=== PATIENT | female | born 1995 | race American Indian/Alaskan Native ===

== ENCOUNTER 2016-08-25 18:19 | Outpatient (CLI) | payer MEDICAID ==
[2016-08-25] MEDS ORDERED: LACTATED RINGERS 500 ML IV ONE ×2 (18:24→19:56)
[2016-08-25] MEDS ORDERED: LACTATED RINGERS 1,000 ML ONE ×2 (18:47→19:30)
[2016-08-25 19:30] LABS: Bilirubin,Urine NEG (Negative); Blood,Urine NEG (Negative); Ketones,Urine NEG (Negative); Leukocyte Esterase,Urine NEG (Negative); Mucus,Urine FEW /HPF; Nitrite,Urine NEG (Negative); Protein,Urine <15 mg/dL mg/dL (Negative); Urobilinogen,Urine < 2.0 mg/dL (<2.0)
[2016-08-25] MEDS ORDERED: BRETHINE ONE (19:54)
[2016-08-25] MEDS: BRETHINE SUB-Q SCH ×2 (20:00→20:28)
[2016-08-25 20:01] VITALS: BP 112/66
== END 2016-08-25 21:38 | disposition home or self-care (01) ==
LOC: TRG 18:19
PROVIDERS: ATTEND Obstetrics & Gynecology
DX: O47.03 False labor before 37 completed weeks of gestation, third trimester (principal); Z3A.30 30 weeks gestation of pregnancy
CPT/HCPCS: 36415; 59025; 81001; 82731; 96360; 96361; J3105; J7120

== ENCOUNTER 2016-10-16 13:40 | Inpatient (IN) | payer MEDICAID ==
[2016-10-16] MEDS ORDERED: PEPCID IV ONE ×2 (14:46→18:00)
[2016-10-16] MEDS ORDERED: REGLAN IV ONE ×2 (14:46→18:00)
[2016-10-16] MEDS ORDERED: BICITRA PO ONE ×2 (14:46→18:00)
--- NOTE | 2016-10-16 14:51 | History and Physical Report ---
History of Present Illness Date of examination: 10/16/16 (pt presents in labor Known Breech presentation) Chief complaint: contractions X several hours History of present illness: EDC Confirmation: 10/28/2016 Gestational Age: 10 5/7 weeks Past History : 2 Term Births: 1 Living Children: 1 Para: 1 Mult. Births: 0 Prev : 0 Aborta: 0 Elect. Ab: 0 Spont. Ab: 0 Ectopics: 0 # 1 Delivery date: 2015 Weeks Gestation: 39 labor: no Delivery type: Anesthesia type: none Delivery location: [place] Sex: Male weight: 6#11 Past Medical History: Negative Past Medical History Past Surgical History: negative Past Medical History Anesthesia Complications: negative Anemia: negative Autoimmune Disorder: negative Bleeding Disorder: negative Blood Transfusions: negative Breast Disease: negative Diabetes: negative Heart Disease: negative Hypertension: negative Hepatitis/Liver Disease: negative Kidney Disease/UTI: negative Neurologic/Epilepsy/Migraines: negative Phlebitis/Varicosities: negative Psychiatric: negative Pulmonary Disease/Asthma: negative Thyroid Disease: negative Hospitalizations: negative Surgery (Non-dog trainer): negative Abnormal PAP: negative REJI Exposure: negative Infertility: negative Uterine Anomaly: negative Uterine Surgery (not C/S): negative Other Gynecologic Problems: negative Social Hx: , no ETOH/Drugs/smoking Infection History Hx of STD: none HIV Risk Eval: low risk Hepatitis B Risk Eval: low risk Personal hx. of genital herpes: no Partner hx. of genital herpes: no Rash, Viral, or Febrile illness since last LMP? no Varicella/Chicken Pox Status: Immunized TB Risk: no Genetic History Congenital Heart Defect: Mom: no Dad: no Anne-Marie Disease: Mom: no Dad: no Thalassemia Mom: no Dad: no Neural Tube Defect Mom: no Dad: no Down's Syndrome Mom: no Dad: no Everette-Sachs Mom: no Dad: no Sickle Cell Disease/Trait Mom: no Dad: no Hemophilia Mom: no Dad: no Muscular Dystrophy Mom: no Dad: no Cystic Fibrosis Mom: no Dad: no [place] Chorea Mom: no Dad: no Mental Retardation Mom: no Dad: no Fragile X Mom: no Dad: no Other Genetic/Chromosomal Disorder Mom: no Dad: no Child w/other defect Mom: no Dad: no Enviromental Exposures Xray Exposure: no Medication, drug, or alcohol use since LMP: no Chemical/Other Exposure: no Exposure to Cat Liter: no Hx of Parvovirus (Fifth Disease): no Occupational Exposure to Children: none Active Medications (reviewed today): None Laboratory Results Routine Urinalysis Leukocytes: negative Nitrite: negative Urobilinogen: negative Protein: negative Blood: negative Ketone: negative Bilirubin: negative Glucose: negative Urine HCG: positive Review of Systems General Denies fever, chills, sweats, anorexia, fatigue, weakness, malaise, weight loss and sleep disorder. Denies nausea, vomiting, headache, swelling of legs, abdominal pain, vaginal discharge, vaginal bleeding and contractions. Denies vaginal discharge, incontinence, dysuria, hematuria, urinary frequency, amenorrhea, menorrhagia, abnormal vaginal bleeding, pelvic pain, genital sores, decreased libido, painful periods, painful sex, urinary urgency, hot flashes, vaginal dryness, vaginal itching and vaginal odor. CV Denies chest pains, palpitations, syncope, dyspnea on exertion, orthopnea, PND and peripheral edema. Resp Denies cough, dyspnea at rest, excessive sputum, hemoptysis, wheezing and pleurisy. GI Denies nausea, vomiting, diarrhea, constipation, change in bowel habits, abdominal pain, melena, hematochezia, jaundice, gas/bloating, indigestion/ heartburn, dysphagia and odynophagia. Endo Denies cold intolerance, heat intolerance, polydipsia, polyphagia, polyuria and unusual weight change. Breast Denies left breast lump, right breast lump, nipple discharge, bloody discharge from nipple, breast pain, abnormal mammogram and breast enlargement. MS Denies back pain, joint pain, joint swelling, muscle cramps, muscle weakness, stiffness, arthritis, sciatica, restless legs, leg pain at night and leg pain with exertion. Derm Denies rash, itching, dryness and suspicious lesions. Neuro Denies paralysis, paresthesias, headache, seizures, tremors, vertigo, transient blindness, frequent falls, frequent headaches and difficulty walking. Psych Denies depression, anxiety, irritability and mood swings. Eyes Denies blurring, diplopia, irritation, discharge, vision loss, eye pain and photophobia. ENT Denies earache, ear discharge, tinnitus, decreased hearing, nasal congestion, nosebleeds, sore throat and hoarseness. Allergy Denies urticaria, allergic rash, hay fever and recurrent infections. Heme Denies abnormal bruising, bleeding and enlarged lymph nodes. 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 Fundal Ht: sono FHT: + Past History - Obstetrical History Expected Date of Delivery: 10/28/16 Actual Gestation: 38 Week(s) 2 Day(s) : 2 Para: 1 Hx # Term Pregnancies: 1 Number of Living Children: 1 Medications and Allergies Allergies Allergy/AdvReac Type Severity Reaction Status Date / Time Fish Containing Products Allergy Anaphylaxis Verified 04/16/15 18:12 Home Medications Medication Instructions Recorded Confirmed Last Taken Type Nitrofurantoin [place]/M-Cryst 100 mg PO Q12HR #14 capsule 04/16/15 Unknown Rx [Macrobid CAP] Phenazopyridine [Pyridium] 200 mg PO TID #6 tab 04/16/15 Unknown Rx - Vital Signs Vital signs: Vital Signs Pulse BP 89 112/79 10/16/16 13:57 10/16/16 13:57 Temp Pulse Resp BP Pulse Ox 84 98/59 10/16/16 14:27 10/16/16 14:27 - Physical Exam Breasts: Positive: deferred Cardiovascular: Regular rate, Normal S1, Normal S2 Lungs: Positive: Clear to auscultation, Normal air movement Abdomen: Positive: normal appearance, soft, normal bowel sounds. Negative: distention, tenderness Genitourinary (Female): Positive: normal external genitalia, normal perenium Vulva: both: normal Vagina: Positive: normal moisture. Negative: discharge Cervix: Negative: lesion, discharge Uterus: Positive: normal size, normal contour Adnexa: both: normal Anus/Rectum: Positive: normal perianal skin, heme negative. Negative: rectal mass, hemorrhoids Extremities: Positive: normal Deep Tendon Reflex Grade: Normal +2 - Obstetrical FHR: category 1 Uterine Contraction Monitor Mode: External Cervical Dilatation: 3 (per material damage appraiser) Cervical Effacement Percentage: 50 station: -3 Uterine Contraction Frequency (min): q2-4 Uterine Contraction Pattern: Regular Uterine Tone Measurement Phase: Resting Uterine Contraction Intensity: Moderate Results All other labs normal. Laboratory Data-Patient Name: MOISE KINNEY Test Date Result Blood Type 05/08/2016 O Rh 05/08/2016 Negative Antibody Screen negative Rubella 05/08/2016 immune Serology (RPR) 09/26/2016 NR HBsAg 05/08/2016 Negative Hemoglobin 07/11/2016 9.9 Hematocrit 07/11/2016 30.7 Platelets 05/08/2016 201 X10E3/UL Chlamydia DNA 07/11/2016 Negative GC DNA/Culture 07/11/2016 Urine Culture 05/08/2016 Final report Group B Strep cult negative PAP HIV 09/26/2016 negative AFP/Quad Screen Glucola Test 3hr GTT (Fasting) 07/18/2016 76 1 hr 07/18/2016 105 2 hr 07/18/2016 90 3 hr 07/18/2016 93 OPTIONAL LABS-Patient Name:MOISE KINNEY Test Date Result Varicella Ab Sickle Cell 05/08/2016 Negative PPD Fibronectin Cystic Fibrosis Parvovirus TSH Free T4 Hepatitis C ALT AST Uric Acid Creatinine 24 hr Urine Protein LIVIA Assessment and Plan - Patient Problems (1) Breech presentation Current Visit: Yes Status: Acute Qualifiers: Fetus number: single or unspecified fetus Qualified Code(s): O32.1XX0 - Maternal care for breech presentation, not applicable or unspecified Plan to address problem: 21yo @ 38+weeks in active labor Breech presentation. aware. Will move forward with c/s prep. Consents. All orders in EMR
[2016-10-16] MEDS ORDERED: ANCEF/STERILE WATER 2 GM/20 ML 2 GM/20 ML SYRINGE IV NR (15:00)
[2016-10-16] MEDS: LACTATED RINGERS 1,000 ML IV SCH ×2 (15:00→18:58)
[2016-10-16] MEDS ORDERED: PITOCin/NS 20 UNIT/1000ML DRIP 20 UNITS/1,000 ML BAG IV SCH ×2 (15:00→22:38)
[2016-10-16 15:38] LABS: Basophils % (Auto) 0.3 % (0.0-1.8); Eosinophils % (Auto) 0.7 % (0.0-4.3); Hematocrit 27.8 % (30.3-42.9); Hemoglobin 9.1 gm/dl (10.1-14.3); Mean Corpuscular HGB Conc 33 % (30-34); Mean Corpuscular Volume 77 fl (79-97); Platelet Count 161 K/mm3 (140-440); Red Blood Count 3.61 M/mm3 (3.65-5.03); Red Cell Distribution Width 14.6 % (13.2-15.2); White Blood Count 9.3 K/mm3 (4.5-11.0)
[2016-10-16 15:53] LABS: Mean Corpuscular Hemoglobin 25 pg (28-32)
[2016-10-16] MEDS ORDERED: MORPHINE ONE (19:37)
[2016-10-16] MEDS ORDERED: ZOFRAN ONE (19:52)
[2016-10-16] MEDS ORDERED: NACL 0.9% IR ONE (20:00)
[2016-10-16] MEDS ORDERED: WATER FOR IRRIG STERILE IR ONE (20:00)
[2016-10-16] MEDS ORDERED: VERSED ONE ×2 (20:10→20:19)
[2016-10-16] MEDS ORDERED: SUBLIMAZE ONE (20:14)
--- NOTE | 2016-10-16 21:00 | Operative Report ---
Operative Report Operative Report: Date of procedure: 10/16/2016 Pre-operative diagnosis: Breech Presentation Post-operative diagnosis: Same Procedure name(s): Primary low transverse section Surgeon: Vikash Rome MD Electric Wirer: Anesthesia: Spinal EBL: 800 mL Complications: None Findings: Normal uterus tubes and ovaries, male breech presentation, weight 6 lbs. 13 oz., Apgars 8 at 1 minute 9 at 5 minutes. Nuchal cord 1 Specimen(s): None Procedure: The patient was brought to the operating room. A spinal was placed without any complications. She was then placed in left lateral tilt. Prepped and draped in the usual sterile manner. After testing for adequate anesthesia level, a Pfannenstiel incision was made. This incision was taken down to the fascia. The fascia was then nicked in the midline. This incision was extended out laterally with Warren scissors. The fascia was then sharply and bluntly from the underlying rectus muscles. The rectus muscles were bluntly and sharply . The peritoneum was then entered with the oil well cable tool operator's fingers. This incision was spread vertically with care not to damage the bladder below. The Db retractor was placed without difficulty. The bladder flap was then formed sharply and bluntly with Metzenbaum scissors. A transverse incision was made in lower uterine segment. This incision was extended laterally with the operators fingers. The amniotic sac was then entered bluntly with the oil well cable tool operator's fingers. The was delivered by delivered in the breech first flexing and extending the lower extremities followed by raising the breech then sweeping flexing and extending the upper extremities and after coming head was then delivered safely after nuchal cord was easily reduced. The infant was bulb suctioned on the mother's abdomen. Cord was double clamped and cut. The infant was then passed to the nursery personnel who were in attendance. The above scores were given by the nursery personnel. The placenta was then bluntly removed. The uterus was then externalized and wiped clean the remaining products. The uterine incision was closed in layers. The first incision was closed in a locking manner using 0 Vicryl. This was followed by imbricating stitch also with 0 Vicryl. This closure was hemostatic. The bladder flap was copiously irrigated and found to be hemostatic. The pelvis was copiously irrigated and found to be hemostatic. The uterus was then placed back to the patient's abdomen. The retractors were removed. The rectus muscles were inspected and found to be hemostatic. The fascia was then closed in a running manner using 0 Vicryl. This incision was hemostatic irrigation Bovie. The skin was reapproximated with 4-0 Vicryl subcuticularly. The patient tolerated procedure well. Her urine was clear. The was admitted to the well baby nursery. The patient was accompanied to recovery room in good condition. Instrument count correct 3.
[2016-10-16] MEDS ORDERED: MORPHINE IV PRN ×2 (21:15)
[2016-10-16] MEDS ORDERED: TORADOL IV PRN (21:15)
[2016-10-16] MEDS ORDERED: ZOFRAN IV PRN (21:16)
--- NOTE | 2016-10-16 21:16 | Post Anesthesia Evaluation ---
- Post Anesthesia Evaluation Patient Participated: Yes Airway Patent: Yes Stable Respiratory Function: Yes Nausea/Vomiting: No Temp > 96.8F: Yes Pain Manageable: Yes Adequeate Hydration: Yes Anesthesia Complications: No Block Receding Appropriately: Yes Patient on Ventilator: No
--- NOTE | 2016-10-16 21:16 | Anesthesia Consultation ---
Anesthesia Consult and Med Hx Date of service: 10/16/16 - Airway Anesthetic Teeth Evaluation: Good ROM Head & Neck: Adequate Mental/Hyoid Distance: Adequate Mallampati Class: Class II Intubation Access Assessment: Probably Good - Pulmonary Exam CTA: Yes - Cardiac Exam Cardiac Exam: RRR - Pre-Operative Health Status ASA Pre-Surgery Classification: ASA2 Proposed Anesthetic Plan: Spinal - Pulmonary Hx Asthma: No COPD: No Hx Pneumonia: No - Cardiovascular System Hx Hypertension: No - Central Nervous System Hx Seizures: No Hx Psychiatric Problems: No - Endocrine Hx Renal Disease: No Hx Hypothyroidism: No Hx Hyperthyroidism: No - Hematic Hx Anemia: No Hx Sickle Cell Disease: No - Other Systems Hx Alcohol Use: No - Additional Comments Anesthesia Medical History Comments: +iup, breech
--- NOTE | 2016-10-16 21:16 | Anesthesia Day of Surgery ---
Anesthesia Day of Surgery - Day of Surgery Patient Examined: Yes Patient H&P Reviewed: Yes Patient is NPO: Yes
[2016-10-16] MEDS ORDERED: BENADRYL IV PRN (21:17)
[2016-10-16] MEDS ORDERED: LANSINOH TP PRN (22:38)
[2016-10-16] MEDS ORDERED: SODIUM CHLORIDE FLUSH SYRINGE 10 ML IV NR (22:38)
[2016-10-16] MEDS ORDERED: MILK OF MAGNESIA PO PRN (22:38)
[2016-10-16] MEDS ORDERED: NARCAN 0.4 MG/1 ML IV PRN (22:38)
[2016-10-16] MEDS ORDERED: TUCKS PAD TP PRN (22:38)
[2016-10-16] MEDS ORDERED: MYLICON PO PRN (22:38)
[2016-10-16] MEDS ORDERED: D5LR 1,000 ML IV SCH (22:38)
[2016-10-16] MEDS: ANCEF/NS 1 GM/50 ML 1 GM/50 ML BAG IV SCH (23:05)
--- NOTE | 2016-10-17 07:57 | Ultrasound Report ---
ULTRASOUND OB LIMITED History: well being, evaluate presentation Technique: Transabdominal ultrasound with Doppler interrogation. Gestation: Single Position: Breech Heart Rate: 157 BPM
--- NOTE | 2016-10-17 08:03 | Progress Note ---
Assessment and Plan patient doing well <12h post op, pain well controlled, lochia scant, dressing D &I, Huddleston patent with good output, VSSAF. Patient reports infant without any difficulty. postop H&H ordered for 9am. Advance diet and activity as tolerated. reenforced use of IS frequently throughout the day. Continue current pathway. - Patient Problems (1) delivery delivered Current Visit: Yes Status: Acute Subjective - Subjective Date of service: 10/17/16 Principal diagnosis: postop day #1 s/p primary c/s for breech Patient reports: pain well controlled, no dizzy ambulation, no flatus, no nauseated : doing well, nursing well Objective - Vital Signs Latest vital signs: Vital Signs Temp Pulse Pulse Resp BP BP Pulse Ox 10/17/16 05:25 98.5 F 69 18 97/57 10/17/16 01:13 98.5 F 76 18 109/55 10/16/16 22:35 98.1 F 60 16 112/68 10/16/16 22:00 67 13 109/66 100 10/16/16 21:45 75 12 105/69 100 10/16/16 21:30 77 10 L 113/50 99 10/16/16 21:15 55 L 14 106/65 100 10/16/16 21:00 67 14 120/72 100 10/16/16 20:56 69 12 121/70 100 10/16/16 20:52 97.6 F 84 18 117/73 100 10/16/16 16:28 76 112/63 10/16/16 15:58 84 110/64 10/16/16 14:57 92 H 109/79 10/16/16 14:27 84 98/59 10/16/16 13:57 89 112/79 Intake and Output 10/16/16 10/17/16 10/17/16 22:59 06:59 14:59 Intake Total 1825 1120 Output Total 400 1200 Balance 1425 -80 Intake: IV 1825 1000 ANCEF/NS 1 GM/50 ML 1 gm 50 In 50 ml @ 100 mls/hr IV Q8H ZORAN Rx#:[id number] D5lr 1,000 ml @ 125 mls/ 625 hr IV DIRECT ZORAN Rx#: [id number] Lactated Ringers 1,000 ml 1000 @ 2250 mls/hr IV PREOP ZORAN Rx#:[id number] PITOCin/NS 20 UNIT/1000ML 125 325 DRIP 20 units In 1,000 ml @ 250 mls/hr IV DIRECT ZORAN Rx#:[id number] Intake, Free Water 120 Output: Urine 400 1200 Indwelling Catheter 1200 Uretheral (Huddleston) 150 Other: Total, Output Amount 500 # Voids Void 1 Weight 61.689 kg Estimated Blood Loss 800 - Exam Breasts: Present: normal, Cardiovascular: Present: Regular rate Lungs: Present: Clear to auscultation, Normal air movement Abdomen: Present: normal appearance, soft Vulva: both: normal Uterus: Present: normal, firm, fundal height at umbilicus Extremities: Present: normal Deep Tendon Reflex Grade: Normal +2 Incision: Present: normal, dry, dressed - Labs Labs: Abnormal lab results 10/16/16 Range/Units 15:17 RBC 3.61 L (3.65-5.03) M/mm3 Hgb 9.1 L (10.1-14.3) gm/dl Hct 27.8 L (30.3-42.9) % MCV 77 L (79-97) fl MCH 25 L (28-32) pg Seg Neutrophils % 71.8 H (40.0-70.0) %
[2016-10-17] MEDS: ANCEF/NS 1 GM/50 ML 1 GM/50 ML BAG IV SCH (09:39)
[2016-10-17] MEDS: PRENATAL VITAMIN PO SCH (09:40)
[2016-10-17] MEDS ORDERED: FEOSOL PO SCH (10:00)
[2016-10-17 10:09] LABS: Hematocrit 24.7 % (30.3-42.9); Hemoglobin 8.1 gm/dl (10.1-14.3)
--- NOTE | 2016-10-17 11:02 | Progress Note ---
Subjective Date of service: 10/17/16 Principal diagnosis: postop day #1 s/p primary c/s for breech Interval history: 1st POD after Patient is in the bed, comfortable. Pain is well controlled with pain meds. Slight pruritus, no meds. No residual neurological deficit. No anesthesia complications Objective - Constitutional Vitals: Vital Signs - 12hr 10/17/16 10/17/16 01:13 05:25 Temperature 98.5 F 98.5 F Pulse Rate [ 76 69 Right From Monitor] Respiratory 18 18 Rate Blood Pressure 109/55 97/57 [Right Arm] - Labs CBC & Chem 7: 10/17/16 09:51 Labs: Abnormal lab results 10/16/16 10/17/16 Range/Units 15:17 09:51 RBC 3.61 L (3.65-5.03) M/mm3 Hgb 9.1 L 8.1 L (10.1-14.3) gm/dl Hct 27.8 L 24.7 L (30.3-42.9) % MCV 77 L (79-97) fl MCH 25 L (28-32) pg Seg Neutrophils % 71.8 H (40.0-70.0) %
[2016-10-17] MEDS: NORCO 5/325 PO PRN ×3 (13:13→22:36)
[2016-10-17] MEDS: MOTRIN PO PRN ×2 (13:14→18:33)
[2016-10-17] MEDS: COLACE PO SCH ×2 (15:08→22:29)
[2016-10-17] MEDS: FEOSOL PO SCH ×2 (15:08→22:29)
[2016-10-18] MEDS: NORCO 5/325 PO PRN ×2 (04:24→08:54)
--- NOTE | 2016-10-18 06:48 | Discharge Summary ---
Providers - Providers Date of Admission: 10/16/16 15:47 Date of discharge: 10/18/16 (pt requests d/c today; also req Depo for ) Attending physician: RODNEY KUMAR 10/16/16 22:38 Consult to Multiskill Operator [CONS] Routine Reason For Exam: Primary care physician: JERROD LIANG Hospitalization Reason for admission: active labor Delivery: (breech) Procedure: primary low transverse Episiotomy: none Laceration: none Incision: normal, dry, intact Other procedures: none complications: none Discharge diagnosis: IUP at term delivered [place] baby: male Hospital course: uncomplicated primary section BREECH Pt w/o complaint VSS FF below umb Lochia scant Incision D&I H&H 02/01 chronic anemia Pt is asymptomatic. Doing well s/p section P: d/c today with instructions RTO 1 week for postop visit and son's circ. Condition at discharge: Good Disposition: DISCHARGED TO HOME OR SELFCARE - Discharge Diagnoses (1) Breech presentation Status: Acute Qualifiers: Fetus number: single or unspecified fetus Qualified Code(s): O32.1XX0 - Maternal care for breech presentation, not applicable or unspecified (2) delivery delivered Status: Acute Comment: rto 1 week postop care Plan - Discharge Medications Prescriptions: Ferrous Sulfate [Feosol 325 MG tab] 325 mg PO BID #60 tablet Ibuprofen [Motrin 800 MG tab] 800 mg PO Q6H PRN #30 tablet PRN Reason: Pain oxyCODONE /ACETAMINOPHEN [Percocet 5/325 mg] 1 - 2 tab PO Q4H PRN #30 tablet PRN Reason: Pain, Moderate - Provider Discharge Summary Activity: routine, no sex for 6 weeks, no heavy lifting 4 weeks, no strenuous exercise Diet: routine Instructions: routine Additional instructions: [] Smoking cessation referral if applicable(refer to patient education folder for contact #) [] Refer to [facility] Booklet Call your doctor immediately for: * Fever > 100.5 * Heavy vaginal bleeding ( >1 pad per hour) * Severe persistent headache * Shortness of breath * Reddened, hot, painful area to leg or breast * Drainage or odor from incision. * Keep incision clean and dry at all times and follow doctor's instructions regarding bathing/showering - Follow up plan Follow up: JERROD LIANG MD [Primary Care Provider] - 7 Days (Congratulations! Please call [phone] to schedule your postoperative visit and your son's circumcision in 1 week. Bring the EMLA cream with you to his visit. Take medications as prescribed. Call with any concerns.)
[2016-10-18] MEDS ORDERED: DEPO-PROVERA (CONTRACEPTION) IM ONE ×2 (06:55→11:52)
[2016-10-18] MEDS: MOTRIN PO PRN (08:54)
[2016-10-18] MEDS: COLACE PO SCH (11:58)
[2016-10-18] MEDS: FEOSOL PO SCH (11:58)
[2016-10-18] MEDS: PRENATAL VITAMIN PO SCH (11:59)
[2016-10-18 12:36] VITALS: BP 114/62
== END 2016-10-18 13:32 | disposition home or self-care (01) | DRG 766 ==
LOC: TRG 13:40 → APU 15:47 → OB 22:22
PROVIDERS: ADMIT Obstetrics & Gynecology; ATTEND Obstetrics & Gynecology
PROC: 10D00Z1 Extraction of Products of Conception, Low, Open Approach (ICD-10-PCS; principal; 2016-10-16)
PROC: 30233S1 Transfusion of Nonautologous Globulin into Peripheral Vein, Percutaneous Approach (ICD-10-PCS; 2016-10-16)
DX: O32.1XX0 Maternal care for breech presentation, not applicable or unspecified (principal); O69.81X0 Labor and delivery complicated by cord around neck, without compression, not applicable or unspecified; O99.02 Anemia complicating childbirth; D64.9 Anemia, unspecified; Z3A.38 38 weeks gestation of pregnancy; Z37.0 Single live birth; Z91.013 Allergy to seafood
CPT/HCPCS: 36415; 76815; 85014; 85018; 85025; 85460; 85461; 86850; 86900; 86901; 99211; G0463; J0690; J1050; J1200; J1885; J2250; J2270; J2405; J2590; J2765; J2790; J3010; J7120; J7121